=== PATIENT | female | born 1945 | race Caucasian/White ===

== ENCOUNTER 2019-01-28 11:30 | Inpatient (IN) ==
[2019-01-28] MEDS ORDERED: Acetaminophen 325 MG TABLET PO PRN (21:41)
[2019-01-28] MEDS ORDERED: Lactulose Oral Soln 20 GM/30 ML UDC PO PRN (22:53)
[2019-01-28] MEDS: traZODone 50 MG TABLET PO PRN (23:59)
[2019-01-29] MEDS: levETIRAcetam 250 MG TABLET PO SCH ×2 (05:32→17:36)
[2019-01-29 06:05] LABS: Basophils % 0.3 %; Eosinophils # 0.2 K/mcL (0.0-0.6); Eosinophils % 3.1 %; Hematocrit 35.1 % (35.3-44.9); Hemoglobin 11.8 g/dL (11.5-15.4); Immature Granulocytes % 0.9 % (0-4); Lymphocytes # 1.1 K/mcL (0.6-4.6); Lymphocytes % 15.8 %; Mean Corpuscular HGB Conc 33.6 g/dL (31.6-35.5); Mean Corpuscular Hemoglobin 27.2 pg (28.0-33.3); Mean Corpuscular Volume 80.9 fL (83.0-100.0); Mean Platelet Volume 10.1 fL (9.4-12.4); Monocytes # 0.5 K/mcL (0.0-1.3); Monocytes % 7.5 %; Neutrophils # 4.9 K/mcL (1.6-8.9); Platelet Count 158 K/mcL (140-400); Red Blood Count 4.34 M/mcL (3.82-4.97); Red Cell Distribution Width 14.6 % (11.5-14.5); Segmented Neutrophils % 72.4 %; White Blood Count 6.8 K/mcL (4.3-11.1)
[2019-01-29 06:09] LABS: Activated Partial Thrombo Time 40.1 Seconds (26.0-36.0)
[2019-01-29 06:18] LABS: Calcium 9.3 mg/dL (8.6-10.3); Potassium 3.7 mEq/L (3.5-5.1)
[2019-01-29 06:21] LABS: INR 3.3; Prothrombin Time 37.3 Seconds (9.4-12.1)
[2019-01-29] MEDS: Ranolazine 500 MG TAB.ER.12H PO SCH ×2 (08:54→21:19)
[2019-01-29] MEDS: Isosorbide MONOnitrate (24 HR) 30 MG TAB.ER.24H PO SCH (08:54)
[2019-01-29] MEDS: *HR* Amiodarone 200 MG TABLET PO SCH (08:56)
[2019-01-29] MEDS: Spironolactone 25 MG TABLET PO SCH (08:56)
[2019-01-29] MEDS: Anastrozole 1 MG TABLET PO SCH (08:56)
[2019-01-29] MEDS: Diltiazem CD (24hr) 120 MG CAPSULE PO SCH (08:57)
[2019-01-29] MEDS: Furosemide 20 MG TABLET PO SCH ×2 (08:58→17:36)
[2019-01-29] MEDS: Cholecalciferol (D-3) 1,000 UNIT (25MCG) TABLET PO SCH (08:58)
[2019-01-29] MEDS: Insulin LISPRO 300 UNITS/3 ML VIAL SQ SCH ×3 (09:02→16:16)
--- NOTE | 2019-01-29 12:34 | Internal Med History&Physical ---
Date of Encounter: 01/29/19 Time of Encounter: 12:34 Assessment and Plan (1) Acute encephalopathy Current visit: No Status: Acute pt is ready for rehab and needs PT OT with supervision eval pending Internal Medicine - H&P: HPI Chief complaint: Rehab deconditioning Admitted From: Intrahospital Transfer History of present illness: Ms. Rashid is a 73 year old female who was transfer from [facility] for rehab, she had extended admission there for acute encephalopathy with mental status change. She had resp failure there req intubation. She was evaluated . There was concern for seizure and she is on keppra. She has chronic anticoaglation. She has multiple medical problem hx including polypharmacy, renal dz, hx portal vein thrombosis, iron def anemia, a fib, copd, hx cva, hx gerd and pvd, hx tad. she is transfer here for pt with supervision. 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 breast cancer. stage III renal failure. TAD. sick sinus surgery Psychiatric history: depression, other - Past Surgical History Surgical History: breast surgery Additional surgical history: portal vein thrombosis,tummy tuck. back surgery. lap band sx. right breast lumpectomy. lymph node removal. 2 cardiac stents - Social History Smoking Status: Never smoker Smokeless Tobacco Status: No Alcohol use: rarely Drug use: none - Family History Father Adopted: No Family Member Ethnicity: Non- Living Status: Hx Family Cardiac Disorders: Yes Hx Family Respiratory Disorders: No Hx Family Cancer: No Hx Family GI Disorders: No Hx Family Endocrine Disorder: Yes Hx Family Neuromuscular Disorders: No Hx Family Neurologic Disorders: Yes Hx Family HEENT Disorders: No Hx Family Autoimmune Disorders: Yes Mother Family Member Ethnicity: Non- Living Status: Hx Family Cardiac Disorders: Yes Hx Family Respiratory Disorders: No Hx Family Cancer: Yes Hx Family GI Disorders: No Hx Family Endocrine Disorder: Yes Hx Family Neuromuscular Disorders: No Hx Family Neurologic Disorders: No Hx Family HEENT Disorders: No Hx Family Autoimmune Disorders: Yes (RA) Sister Adopted: No Living Status: Still Living Hx Family Cardiac Disorders: Yes Hx Family Respiratory Disorders: No Hx Family Cancer: No Hx Family GI Disorders: No Hx Family Endocrine Disorder: Yes Hx Family Neuromuscular Disorders: No Hx Family Neurologic Disorders: Yes Hx Family HEENT Disorders: No Hx Family Autoimmune Disorders: No Brother Adopted: No Living Status: Still Living Hx Family Cardiac Disorders: Yes Hx Family Respiratory Disorders: No Hx Family Cancer: No Hx Family GI Disorders: No Hx Family Endocrine Disorder: No Hx Family Neuromuscular Disorders: No Hx Family Neurologic Disorders: No Hx Family HEENT Disorders: No Hx Family Autoimmune Disorders: No Internal Medicine - H&P: Meds Escitalopram [Lexapro] 20 mg PO DAILY 02/14/15 [History] Rosuvastatin [Crestor] 40 mg PO DAILY 02/14/15 [History] traZODone [TraZODone] 50 mg PO HS PRN 12/18/16 [History] Ranolazine [Ranexa] 1,000 mg PO BID 10/04/17 [History] Anastrozole [Arimidex] 1 mg PO DAILY 02/12/18 [History] Isosorbide MONOnitrate (24 HR) [Imdur] 30 mg PO DAILY 02/12/18 [History] Pantoprazole Sodium [Protonix] 40 mg PO DAILY 02/12/18 [History] Spironolactone [Aldactone] 25 mg PO DAILY 10/12/18 [History] Warfarin [Coumadin] 2 mg PO SUMOWETHFR 10/12/18 [History] Amiodarone HCl 200 mg PO DAILY 10/13/18 [History] Insulin Glargine,Hum.rec.anlog [Lantus Solostar] 40 unit SQ HS 11/14/18 [History] Insulin LISPRO [Humalog Kwikpen U-100] 8 unit SQ TIDWM 11/14/18 [History] Lactulose 10 gm PO Q72H PRN 11/14/18 [History] Semaglutide [Ozempic] 0.25 mg SQ FR 01/07/19 [History] Clopidogrel [Plavix] 75 mg PO QAM 01/09/19 [History] Diltiazem HCl [Tiazac] 120 mg PO DAILY 01/09/19 [History] Potassium Chloride [Klor-Con 10] 20 meq PO BID 01/09/19 [History] Warfarin [Coumadin] 1 mg PO TUSA 01/15/19 [History] levETIRAcetam [Keppra] 500 mg PO Q12HR #120 tablet 01/17/19 [Rx] Furosemide [Lasix] 20 mg PO BID 01/22/19 [History] metOLazone [Zaroxolyn] 2.5 mg PO 2XW PRN 01/22/19 [History] Cholecalciferol (Vitamin D3) [Vitamin D3] 1,000 unit PO DAILY 01/28/19 [History] Allergy/AdvReac Type Severity Reaction Status Date / Time phenylbutazone Allergy Rash Verified 02/12/18 14:15 [From Butazolidin] amitriptyline [From Elavil] AdvReac Headache Verified 02/12/18 14:15 codeine AdvReac Headache Verified 02/12/18 14:15 desipramine AdvReac Headache Verified 02/12/18 14:15 lisinopril AdvReac Cough Verified 02/12/18 14:15 meperidine [From Demerol] AdvReac Headache Verified 02/12/18 14:15 nalbuphine AdvReac Headache Verified 02/12/18 14:15 Nortriptyline AdvReac Headache Verified 02/12/18 14:15 tiagabine AdvReac Headache Verified 02/12/18 14:15 All Systems PM: A 10-system review of systems was performed and is negative for pertinent findings except as documented above in the HPI. - Constitutional Vitals: Temp Pulse Resp BP Pulse Ox 98.1 F 60 16 127/68 100 01/29/19 11:00 01/29/19 11:00 01/29/19 11:00 01/29/19 11:00 01/29/19 11:00 Internal Med - H&P Results - Labs CBC & Chem 7: 01/29/19 05:30 01/30/19 04:12 Labs: Short CBC 01/29/19 Range/Units 05:30 WBC 6.8 (4.3-11.1) K/mcL Hgb 11.8 (11.5-15.4) g/dL Hct 35.1 L (35.3-44.9) % Plt Count 158 (140-400) K/mcL Neutrophils # 4.9 (1.6-8.9) K/mcL BMP 01/29/19 05:30 Sodium 135 L Potassium 3.7 Chloride 100 Carbon Dioxide 27 BUN 39 H Creatinine 1.64 H Glucose 184 H Calcium 9.3
[2019-01-29] MEDS ORDERED: Warfarin perPT PO PRN (18:00)
[2019-01-29] MEDS: Insulin DETEMIR 100 UNIT/ML X5UNITS SQ SCH (21:19)
[2019-01-30 05:21] LABS: INR 2.3; Prothrombin Time 26.4 Seconds (9.4-12.1)
[2019-01-30] MEDS: levETIRAcetam 250 MG TABLET PO SCH ×2 (05:44→17:12)
[2019-01-30] MEDS: Insulin LISPRO 300 UNITS/3 ML VIAL SQ SCH ×3 (08:19→17:12)
[2019-01-30] MEDS: Diltiazem CD (24hr) 120 MG CAPSULE PO SCH (08:21)
[2019-01-30] MEDS: Furosemide 20 MG TABLET PO SCH ×2 (08:21→17:12)
[2019-01-30] MEDS: Anastrozole 1 MG TABLET PO SCH (08:21)
[2019-01-30] MEDS: Spironolactone 25 MG TABLET PO SCH (08:22)
[2019-01-30] MEDS: Isosorbide MONOnitrate (24 HR) 30 MG TAB.ER.24H PO SCH (08:22)
[2019-01-30] MEDS: *HR* Amiodarone 200 MG TABLET PO SCH (08:22)
[2019-01-30] MEDS: Cholecalciferol (D-3) 1,000 UNIT (25MCG) TABLET PO SCH (08:22)
[2019-01-30] MEDS: Ranolazine 500 MG TAB.ER.12H PO SCH ×2 (08:27→20:27)
--- NOTE | 2019-01-30 14:50 | Internal Med Progress Note ---
Date of Encounter: 01/30/19 Time of Encounter: 13:20 - Assessment and plan (1) Acute encephalopathy Current Visit: No Status: Acute - Subjective Interval history: ss Assessment and Plan (1) Acute encephalopathy Current visit: No Status: Acute pt is ready for rehab and needs PT OT with supervision continue current POC Internal hx Ms. Rashid is a 73 year old female who was transfer from [facility] for rehab, she had extended admission there for acute encephalopathy with mental status change. She had resp failure there req intubation. She was evaluated . There was concern for seizure and she is on keppra. She has chronic anticoaglation. She has multiple medical problem hx including polypharmacy, renal dz, hx portal vein thrombosis, iron def anemia, a fib, copd, hx cva, hx gerd and pvd, hx tad. she is transfer here for pt with supervision. currently stable EXAM Gen fatigued and sleepy HEENT dry mucosa neck no bruit heart distant irreg abd soft full nt bs neuro no acute changes - Constitutional Vitals: Temp Pulse Resp BP Pulse Ox 97.9 F 60 16 134/71 100 01/30/19 06:00 01/30/19 06:00 01/30/19 06:00 01/30/19 06:00 01/30/19 06:00 Internal Medicine: Result - Labs CBC & Chem 7: 01/29/19 05:30 01/30/19 04:12 Labs: BMP 01/30/19 04:12 Sodium 138 Potassium 4.0 Chloride 104 Carbon Dioxide 27 BUN 42 H Creatinine 1.76 H Glucose 187 H Calcium 9.0 - ABG Interpretation ABG results: PT/INR, D-dimer PT 26.4 Seconds (9.4-12.1) H 01/30/19 04:12 Consult Discharge Plan - Plan Referrals: NONE,PCP [Primary Care Provider] -
[2019-01-30] MEDS ORDERED: *HR* Warfarin 2 MG TABLET PO ONE (18:00)
[2019-01-30] MEDS: Insulin DETEMIR 100 UNIT/ML X5UNITS SQ SCH (20:27)
[2019-01-30] MEDS: traZODone 50 MG TABLET PO PRN (22:49)
[2019-01-31] MEDS: levETIRAcetam 250 MG TABLET PO SCH ×2 (06:02→17:08)
[2019-01-31 06:19] LABS: INR 1.8; Prothrombin Time 20.9 Seconds (9.4-12.1)
[2019-01-31 06:24] LABS: Calcium 9.2 mg/dL (8.6-10.3); Potassium 4.4 mEq/L (3.5-5.1)
[2019-01-31] MEDS: Insulin LISPRO 300 UNITS/3 ML VIAL SQ SCH ×3 (07:41→17:09)
[2019-01-31] MEDS: Cholecalciferol (D-3) 1,000 UNIT (25MCG) TABLET PO SCH (08:33)
[2019-01-31] MEDS: Spironolactone 25 MG TABLET PO SCH (08:33)
[2019-01-31] MEDS: Anastrozole 1 MG TABLET PO SCH (08:34)
[2019-01-31] MEDS: Isosorbide MONOnitrate (24 HR) 30 MG TAB.ER.24H PO SCH (08:34)
[2019-01-31] MEDS: Diltiazem CD (24hr) 120 MG CAPSULE PO SCH (08:34)
[2019-01-31] MEDS: Furosemide 20 MG TABLET PO SCH ×2 (08:34→17:09)
[2019-01-31] MEDS: *HR* Amiodarone 200 MG TABLET PO SCH (08:34)
[2019-01-31] MEDS: Ranolazine 500 MG TAB.ER.12H PO SCH ×2 (08:36→21:54)
--- NOTE | 2019-01-31 11:53 | Internal Med Progress Note ---
Date of Encounter: 01/31/19 Time of Encounter: 11:50 - Assessment and plan (1) General weakness Current Visit: Yes Status: Acute Assessment and plan: Continue PT and OT. Will follow progress. (2) Diabetes Current Visit: Yes Status: Chronic Assessment and plan: Controlled with insulin. Monitor fingerstick blood sugar. Will adjust medicines as necessary. Qualifiers: Diabetes mellitus type: type 2 Diabetes mellitus nursing home insulin use: with nursing home use Diabetes mellitus complication status: with neurologic complications Diabetes mellitus complication detail: with polyneuropathy Qualified Code(s): E11.42 - Type 2 diabetes mellitus with diabetic polyneuropathy; Z79.4 - intermission coordinator (current) use of insulin (3) Atrial fibrillation Current Visit: Yes Status: Chronic Assessment and plan: Rate and rhythm stable. Continue Coumadin. Monitor INR. Qualifiers: Atrial fibrillation type: chronic Qualified Code(s): I48.2 - Chronic atrial fibrillation (4) CAD (coronary artery disease) Current Visit: Yes Status: Chronic Assessment and plan: Stable. Denies chest pain. Continue current medication. Qualifiers: Coronary Disease-Associated Artery/Lesion type: [place] artery [place] vs. transplanted heart: [place] heart Associated angina: with stable angina Qualified Code(s): I25.118 - Atherosclerotic heart disease of [place] coronary artery with other forms of angina pectoris - Time Spent With Patient less than 15 minutes - Subjective Interval history: Lying in bed, participating well with therapy. Reports urinary urgency, states she has had this for many years. Incontinent of urine. Last bowel movement 4 days ago. Received lactulose last night. Discussed starting Miralax. Denies fever, chills, nausea vomiting or diarrhea, shortness breath or chest pain. - Constitutional Vitals: Temp Pulse Resp BP Pulse Ox 97.9 F 63 16 121/71 97 01/31/19 07:42 01/31/19 07:42 01/31/19 07:42 01/31/19 07:42 01/31/19 07:42 General appearance: Present: A&O X 3, pleasant, no acute distress, answers questions appropriately - Head Head exam: Present: atraumatic, normocephalic - Eye Eye exam: Present: PERRL, conjuntiva pink, sclera anicteric Pupils: Present: PERRL - Neck Neck exam general surgery: Present: supple, trachea midline. Absent: lymphadenopathy - Respiratory Respiratory exam: Present: CTAB. Absent: accessory muscle use, rales, rhonchi, wheezes - Cardiovascular Cardiovascular exam: Present: irregular rhythm, +S1, +S2. Absent: diastolic murmur, gallop, rubs, systolic murmur - GI/Abdominal GI/Abdominal exam: Present: normal bowel sounds, soft, no peritoneal signs. Absent: distended, tenderness - Extremities Exam Extremities exam: Present: warm, radial pulses palpable and symmetrical. Absent: calf tenderness, cyanotic, pedal edema - Neurological Exam Neurological exam: Present: CN II-XII intact, oriented X3, no focal deficits. Absent: pronater drift, facial droop, speech deficit - Skin Skin exam: Present: dry, intact Additional comments: Scattered ecchymosis Internal Medicine: Result - Labs CBC & Chem 7: 01/29/19 05:30 01/31/19 05:50 Labs: BMP 01/31/19 05:50 Sodium 137 Potassium 4.4 Chloride 105 Carbon Dioxide 28 BUN 40 H Creatinine 1.74 H Glucose 145 H Calcium 9.2 - ABG Interpretation ABG results: PT/INR, D-dimer PT 20.9 Seconds (9.4-12.1) H 01/31/19 05:50 Consult Discharge Plan - Plan Referrals: NONE,PCP [Primary Care Provider] -
[2019-01-31] MEDS ORDERED: *HR* Warfarin 2 MG TABLET PO ONE (18:00)
[2019-01-31] MEDS: traZODone 50 MG TABLET PO PRN (21:54)
[2019-01-31] MEDS: Insulin DETEMIR 100 UNIT/ML X5UNITS SQ SCH (21:55)
[2019-02-01] MEDS: levETIRAcetam 250 MG TABLET PO SCH ×2 (04:38→16:35)
[2019-02-01 06:16] LABS: Calcium 9.1 mg/dL (8.6-10.3); Potassium 4.4 mEq/L (3.5-5.1)
[2019-02-01 07:09] LABS: INR 2.7; Prothrombin Time 30.2 Seconds (9.4-12.1)
[2019-02-01] MEDS: Insulin LISPRO 300 UNITS/3 ML VIAL SQ SCH ×3 (07:52→16:35)
[2019-02-01] MEDS: Isosorbide MONOnitrate (24 HR) 30 MG TAB.ER.24H PO SCH (08:33)
[2019-02-01] MEDS: Anastrozole 1 MG TABLET PO SCH (08:33)
[2019-02-01] MEDS: *HR* Amiodarone 200 MG TABLET PO SCH (08:33)
[2019-02-01] MEDS: Diltiazem CD (24hr) 120 MG CAPSULE PO SCH (08:33)
[2019-02-01] MEDS: Cholecalciferol (D-3) 1,000 UNIT (25MCG) TABLET PO SCH (08:33)
[2019-02-01] MEDS: Furosemide 20 MG TABLET PO SCH ×2 (08:34→16:35)
[2019-02-01] MEDS: Spironolactone 25 MG TABLET PO SCH (08:34)
[2019-02-01] MEDS: Ranolazine 500 MG TAB.ER.12H PO SCH ×2 (10:00→21:28)
--- NOTE | 2019-02-01 11:43 | Internal Med Progress Note ---
Date of Encounter: 02/01/19 Time of Encounter: 11:39 - Assessment and plan (1) General weakness Current Visit: Yes Status: Acute Assessment and plan: Continue PT and OT. Will follow progress. (2) Diabetes Current Visit: Yes Status: Chronic Assessment and plan: Controlled with insulin. Monitor fingerstick blood sugar. Will adjust medicines as necessary. Qualifiers: Diabetes mellitus type: type 2 Diabetes mellitus care home insulin use: with care home use Diabetes mellitus complication status: with neurologic complications Diabetes mellitus complication detail: with polyneuropathy Qualified Code(s): E11.42 - Type 2 diabetes mellitus with diabetic polyneuropathy; Z79.4 - terminal makeup operator (current) use of insulin (3) Atrial fibrillation Current Visit: Yes Status: Chronic Assessment and plan: Rate and rhythm stable. Continue Coumadin. Monitor INR. Qualifiers: Atrial fibrillation type: chronic Qualified Code(s): I48.2 - Chronic atrial fibrillation (4) CAD (coronary artery disease) Current Visit: Yes Status: Chronic Assessment and plan: Stable. Denies chest pain. Continue current medication. Qualifiers: Coronary Disease-Associated Artery/Lesion type: [place] artery [place] vs. transplanted heart: [place] heart Associated angina: with stable angina Qualified Code(s): I25.118 - Atherosclerotic heart disease of [place] coronary artery with other forms of angina pectoris - Time Spent With Patient less than 15 minutes - Subjective Interval history: Ambulating with therapy in hallway with Walker with contact guard assist. Denies fever, chills, nausea vomiting or diarrhea. Denies shortness of breath or chest pain. Nursing staff states that urinalysis cloudy. Will obtain urinalysis. Last bowel movement 4 days ago, states it is normal for her to go a week without bowel movement.. Miralax ordered. - Constitutional Vitals: Temp Pulse Resp BP Pulse Ox 97.8 F 60 15 137/76 97 02/01/19 07:36 02/01/19 07:36 02/01/19 07:36 02/01/19 07:36 02/01/19 07:36 General appearance: Present: A&O X 3, pleasant, no acute distress, answers questions appropriately - Head Head exam: Present: atraumatic, normocephalic - Eye Eye exam: Present: PERRL, conjuntiva pink, sclera anicteric Pupils: Present: PERRL - Neck Neck exam general surgery: Present: supple, trachea midline. Absent: lymphadenopathy - Respiratory Respiratory exam: Present: CTAB. Absent: accessory muscle use, rales, rhonchi, wheezes - Cardiovascular Cardiovascular exam: Present: irregular rhythm, +S1, +S2. Absent: diastolic murmur, gallop, rubs, systolic murmur - GI/Abdominal GI/Abdominal exam: Present: normal bowel sounds, soft, no peritoneal signs. Absent: distended, tenderness - Extremities Exam Extremities exam: Present: warm, radial pulses palpable and symmetrical. Absent: calf tenderness, cyanotic, pedal edema - Neurological Exam Neurological exam: Present: CN II-XII intact, oriented X3, no focal deficits. Absent: pronater drift, facial droop, speech deficit - Skin Skin exam: Present: dry, intact Internal Medicine: Result - Labs CBC & Chem 7: 01/29/19 05:30 02/01/19 05:45 Labs: BMP 02/01/19 05:45 Sodium 136 Potassium 4.4 Chloride 105 Carbon Dioxide 27 BUN 36 H Creatinine 1.67 H Glucose 122 H Calcium 9.1 - ABG Interpretation ABG results: PT/INR, D-dimer PT 30.2 Seconds (9.4-12.1) H 02/01/19 05:45 Consult Discharge Plan - Plan Referrals: NONE,PCP [Non-Partnered Physician] -
[2019-02-01 17:18] LABS: Bilirubin,Urine Negative (Negative); Blood,Urine Moderate (Negative); Color,Urine Yellow (Yellow); Glucose,Urine (UA) 100 mg/dL (Normal); Ketones,Urine Negative (Negative); Leukocyte Esterase,Urine Large (Negative); Nitrite,Urine Negative (Negative); Protein,Urine 100 mg/dL (Neg-Trace); Specific Gravity,Urine >= 1.030 (1.010-1.025); Urobilinogen,Urine Normal (Normal)
[2019-02-01 17:19] LABS: Clarity,Urine Cloudy (Clear)
[2019-02-01 17:20] LABS: RBC,Urine 50-100 per hpf (0-3); WBC,Urine TNTC per hpf (0-3)
[2019-02-01 17:21] LABS: Bacteria,Urine Moderate per hpf (None-Few); Squamous Epithelial Cell,Urine Few per lpf (None-Few)
[2019-02-01] MEDS ORDERED: *HR* Warfarin 1 MG TABLET PO ONE (18:00)
[2019-02-01] MEDS: Insulin DETEMIR 100 UNIT/ML X5UNITS SQ SCH (21:28)
[2019-02-01] MEDS: traZODone 50 MG TABLET PO PRN (21:28)
[2019-02-02] MEDS: levETIRAcetam 250 MG TABLET PO SCH ×2 (04:57→18:02)
[2019-02-02 08:34] LABS: Prothrombin Time 33.6 Seconds (9.4-12.1)
[2019-02-02] MEDS: Ranolazine 500 MG TAB.ER.12H PO SCH ×2 (08:59→21:04)
[2019-02-02] MEDS: *HR* Amiodarone 200 MG TABLET PO SCH (09:00)
[2019-02-02] MEDS: Furosemide 20 MG TABLET PO SCH ×2 (09:00→18:02)
[2019-02-02] MEDS: Insulin LISPRO 300 UNITS/3 ML VIAL SQ SCH ×3 (09:00→18:00)
[2019-02-02] MEDS: Spironolactone 25 MG TABLET PO SCH (09:00)
[2019-02-02] MEDS: Isosorbide MONOnitrate (24 HR) 30 MG TAB.ER.24H PO SCH (09:00)
[2019-02-02] MEDS: Anastrozole 1 MG TABLET PO SCH (09:00)
[2019-02-02] MEDS: Cholecalciferol (D-3) 1,000 UNIT (25MCG) TABLET PO SCH (09:00)
[2019-02-02] MEDS: Diltiazem CD (24hr) 120 MG CAPSULE PO SCH (09:00)
--- NOTE | 2019-02-02 12:38 | Internal Med Progress Note ---
Date of Encounter: 02/02/19 Time of Encounter: 12:36 - Assessment and plan (1) COPD (chronic obstructive pulmonary disease) Current Visit: No Status: Chronic Assessment and plan: No acute issues at this time. Lungs are clear throughout. Denies dyspnea. No productive cough. We will continue with physical therapy and current medications. Qualifiers: COPD type: chronic bronchitis Chronic bronchitis type: simple Qualified Code(s): J41.0 - Simple chronic bronchitis (2) Diabetes Current Visit: No Status: Chronic Assessment and plan: No acute issues. Patient's glucose has been better controlled over the past few days with most readings less than 200. We will continue with current medications Qualifiers: Diabetes mellitus type: type 2 Diabetes mellitus terminal make up operator insulin use: with nursing home use Diabetes mellitus complication status: with hyperglycemia Qualified Code(s): E11.65 - Type 2 diabetes mellitus with hyperglycemia (3) Atrial fibrillation Current Visit: Yes Status: Chronic Assessment and plan: Patient's heart rate remains irregular with a controlled ventricular rate less than 100. We will continue on current medications and anticoagulation Qualifiers: Atrial fibrillation type: chronic Qualified Code(s): I48.2 - Chronic atrial fibrillation (4) CAD (coronary artery disease) Current Visit: Yes Status: Chronic Assessment and plan: No current issues. Patient denies any chest discomforts or palpitations. Denies any dyspnea on exertion. We will continue with current therapy and medications Qualifiers: Coronary Disease-Associated Artery/Lesion type: [place] artery [place] vs. transplanted heart: [place] heart Associated angina: with stable angina Qualified Code(s): I25.118 - Atherosclerotic heart disease of [place] coronary artery with other forms of angina pectoris (5) CHF (congestive heart failure) Current Visit: Yes Status: Acute Assessment and plan: No acute issues at this time. Patient's lungs are clear throughout and she denies any dyspnea on exertion. This may oral and therapy. No peripheral edema noted. We will continue on current medications Qualifiers: Heart failure type: unspecified Heart failure chronicity: unspecified Qualified Code(s): I50.9 - Heart failure, unspecified - Time Spent With Patient less than 15 minutes - Subjective Interval history: Patient appears relaxed but states she has had a slight frontal headache, which she states has been a intermittent chronic issue. States a history of sinusitis. Patient also states that she has taken Tylenol which has been effective. Denies any dyspnea or chest discomforts. Denies any palpitations. States that therapy has been progressing well - Constitutional Vitals: Temp Pulse Resp BP Pulse Ox 97.8 F 60 17 117/62 98 02/02/19 06:48 02/02/19 06:48 02/02/19 06:48 02/02/19 06:48 02/02/19 06:48 General appearance: Present: A&O X 3, pleasant, no acute distress, answers questions appropriately - Head Head exam: Present: atraumatic, normocephalic - Eye Eye exam: Present: PERRL, conjuntiva pink, sclera anicteric Pupils: Present: PERRL - Neck Neck exam general surgery: Present: supple, trachea midline. Absent: lymphadenopathy - Respiratory Respiratory exam: Present: decreased breath sounds, CTAB. Absent: accessory muscle use, rales, rhonchi, wheezes - Cardiovascular Cardiovascular exam: Present: RRR, +S1, +S2. Absent: diastolic murmur, gallop, rubs, systolic murmur - GI/Abdominal GI/Abdominal exam: Present: normal bowel sounds, soft, no peritoneal signs. Absent: distended, tenderness - Extremities Exam Extremities exam: Present: warm, radial pulses palpable and symmetrical. Absent: calf tenderness, cyanotic, pedal edema - Neurological Exam Neurological exam: Present: CN II-XII intact, oriented X3, no focal deficits. Absent: pronater drift, facial droop, speech deficit - Skin Skin exam: Present: dry, intact Internal Medicine: Result - Labs CBC & Chem 7: 01/29/19 05:30 02/01/19 05:45 Labs: Urine 02/01/19 Range/Units 16:45 Urine Color Yellow (Yellow) Urine Clarity Cloudy A (Clear) Urine pH 6.0 (5.0-8.0) pH Units Ur Specific [place] >= 1.030 H (1.010-1.025) Urine Protein 100 H (Neg-Trace) mg/dL Urine Glucose (UA) 100 H (Normal) mg/dL - ABG Interpretation ABG results: PT/INR, D-dimer PT 33.6 Seconds (9.4-12.1) H 02/02/19 07:51 Consult Discharge Plan - Plan Referrals: NONE,PCP [Non-Partnered Physician] -
[2019-02-02] MEDS ORDERED: *HR* Warfarin 1 MG TABLET PO ONE ×2 (18:00)
[2019-02-02] MEDS: Insulin DETEMIR 100 UNIT/ML X5UNITS SQ SCH (21:05)
[2019-02-02] MEDS: traZODone 50 MG TABLET PO PRN (21:05)
[2019-02-03] MEDS: levETIRAcetam 250 MG TABLET PO SCH ×2 (05:41→17:25)
[2019-02-03 07:09] LABS: INR 2.7; Prothrombin Time 30.2 Seconds (9.4-12.1)
[2019-02-03] MEDS: Insulin LISPRO 300 UNITS/3 ML VIAL SQ SCH ×3 (08:22→16:02)
[2019-02-03] MEDS: Spironolactone 25 MG TABLET PO SCH (08:23)
[2019-02-03] MEDS: Diltiazem CD (24hr) 120 MG CAPSULE PO SCH (08:23)
[2019-02-03] MEDS: Cholecalciferol (D-3) 1,000 UNIT (25MCG) TABLET PO SCH (08:23)
[2019-02-03] MEDS: *HR* Amiodarone 200 MG TABLET PO SCH (08:23)
[2019-02-03] MEDS: Furosemide 20 MG TABLET PO SCH ×2 (08:23→17:25)
[2019-02-03] MEDS: Anastrozole 1 MG TABLET PO SCH (08:23)
[2019-02-03] MEDS: Isosorbide MONOnitrate (24 HR) 30 MG TAB.ER.24H PO SCH (08:24)
[2019-02-03] MEDS: Ranolazine 500 MG TAB.ER.12H PO SCH ×2 (08:24→21:19)
--- NOTE | 2019-02-03 10:59 | Internal Med Progress Note ---
Date of Encounter: 02/03/19 Time of Encounter: 10:57 - Assessment and plan (1) COPD (chronic obstructive pulmonary disease) Current Visit: No Status: Chronic Assessment and plan: No acute issues at this time. Lungs are clear throughout. Denies dyspnea. No productive cough. We will continue with physical therapy and current medications. Qualifiers: COPD type: chronic bronchitis Chronic bronchitis type: simple Qualified Code(s): J41.0 - Simple chronic bronchitis (2) Diabetes Current Visit: No Status: Chronic Assessment and plan: No acute issues. Patient's glucose has been better controlled over the past few days, but continues to have readings greater than 200. We will continue with current medications and evaluate needs further titration Qualifiers: Diabetes mellitus type: type 2 Diabetes mellitus nursing home insulin use: with nursing home use Diabetes mellitus complication status: with hyperglycemia Qualified Code(s): E11.65 - Type 2 diabetes mellitus with hyperglycemia (3) Atrial fibrillation Current Visit: Yes Status: Chronic Assessment and plan: Patient's heart rate remains irregular with a controlled ventricular rate less than 100. We will continue on current medications and anticoagulation Qualifiers: Atrial fibrillation type: chronic Qualified Code(s): I48.2 - Chronic atrial fibrillation (4) CAD (coronary artery disease) Current Visit: Yes Status: Chronic Assessment and plan: No current issues. Patient denies any chest discomforts or palpitations. Gabriele es any dyspnea on exertion. We will continue with current therapy and medications Qualifiers: Coronary Disease-Associated Artery/Lesion type: [place] artery [place] vs. transplanted heart: [place] heart Associated angina: with stable angina Qualified Code(s): I25.118 - Atherosclerotic heart disease of [place] coronary artery with other forms of angina pectoris (5) CHF (congestive heart failure) Current Visit: Yes Status: Acute Assessment and plan: No acute issues at this time. Patient's lungs are clear throughout and she denies any dyspnea on exertion. No peripheral edema noted. We will continue on current medications Qualifiers: Heart failure type: unspecified Heart failure chronicity: unspecified Qualified Code(s): I50.9 - Heart failure, unspecified - Subjective Interval history: Patient appears relaxed and denies any current discomforts or shortness of breath. States that therapy has been progressing well. - Constitutional Vitals: Temp Pulse Resp BP Pulse Ox 97.8 F 60 16 123/67 92 02/03/19 07:22 02/03/19 07:22 02/03/19 07:22 02/03/19 07:22 02/03/19 07:22 General appearance: Present: A&O X 3, pleasant, no acute distress, answers questions appropriately - Head Head exam: Present: atraumatic, normocephalic - Eye Eye exam: Present: PERRL, conjuntiva pink, sclera anicteric Pupils: Present: PERRL - Neck Neck exam general surgery: Present: supple, trachea midline. Absent: lymphadenopathy - Respiratory Respiratory exam: Present: decreased breath sounds, CTAB. Absent: accessory muscle use, rales, rhonchi, wheezes - Cardiovascular Cardiovascular exam: Present: irregular rhythm, RRR, +S1, +S2. Absent: diastolic murmur, gallop, rubs, systolic murmur Additional comments: Heart rate remains irregular with ventricular rate less than 100 - GI/Abdominal GI/Abdominal exam: Present: normal bowel sounds, soft, no peritoneal signs. Absent: distended, tenderness - Extremities Exam Extremities exam: Present: warm, radial pulses palpable and symmetrical. Absent: calf tenderness, cyanotic, pedal edema - Neurological Exam Neurological exam: Present: CN II-XII intact, oriented X3, no focal deficits. Absent: pronater drift, facial droop, speech deficit - Skin Skin exam: Present: dry, intact Internal Medicine: Result - Labs CBC & Chem 7: 01/29/19 05:30 02/01/19 05:45 - ABG Interpretation ABG results: PT/INR, D-dimer PT 30.2 Seconds (9.4-12.1) H 02/03/19 06:29 Consult Discharge Plan - Plan Referrals: NONE,PCP [Non-Partnered Physician] -
[2019-02-03] MEDS ORDERED: *HR* Warfarin 1 MG TABLET PO ONE (18:00)
[2019-02-03] MEDS: Sulfamethoxazole/Trimeth DS 1 EACH TABLET PO SCH (21:20)
[2019-02-03] MEDS: Insulin DETEMIR 100 UNIT/ML X5UNITS SQ SCH (21:21)
[2019-02-04] MEDS: levETIRAcetam 250 MG TABLET PO SCH (05:13)
[2019-02-04 07:12] VITALS: BP 136/79
[2019-02-04] MEDS: Insulin LISPRO 300 UNITS/3 ML VIAL SQ SCH ×2 (07:36→11:59)
[2019-02-04] MEDS: Diltiazem CD (24hr) 120 MG CAPSULE PO SCH (07:50)
[2019-02-04] MEDS: Spironolactone 25 MG TABLET PO SCH (07:50)
[2019-02-04] MEDS: Sulfamethoxazole/Trimeth DS 1 EACH TABLET PO SCH (07:50)
[2019-02-04] MEDS: Anastrozole 1 MG TABLET PO SCH (07:50)
[2019-02-04] MEDS: Ranolazine 500 MG TAB.ER.12H PO SCH (07:50)
[2019-02-04] MEDS: Isosorbide MONOnitrate (24 HR) 30 MG TAB.ER.24H PO SCH (07:50)
[2019-02-04] MEDS: Cholecalciferol (D-3) 1,000 UNIT (25MCG) TABLET PO SCH (07:50)
[2019-02-04] MEDS: Furosemide 20 MG TABLET PO SCH (07:50)
[2019-02-04] MEDS: *HR* Amiodarone 200 MG TABLET PO SCH (07:51)
[2019-02-04 11:00] LABS: INR 2.6; Prothrombin Time 30.1 Seconds (9.4-12.1)
--- NOTE | 2019-02-04 12:16 | Discharge Summary ---
Orders not resulted at time of discharge: Pending orders 02/01/19 16:45 Culture,Urine [RM] Routine Urinalysis Reflex Cult & Micro [URIN] Routine Date of Encounter: 02/04/19 Time of Encounter: 12:05 - Discharge Diagnosis (1) General weakness Priority: Primary Status: Acute Comments: Ambulating household distances with standby assist. Continue outpatient physical therapy. Ambulate With Walker. (2) Diabetes Priority: Secondary Status: Chronic Comments: Controlled with insulin. Continue to monitor fingerstick blood sugar. Follow up with PCP. 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 Continue Coumadin. Follow up with PCP. Qualifiers: Atrial fibrillation type: chronic Qualified Code(s): I48.2 - Chronic atrial fibrillation (4) CAD (coronary artery disease) Priority: Secondary Status: Chronic Comments: Stable. Denies chest pain. Continue current medication. Qualifiers: Coronary Disease-Associated Artery/Lesion type: [place] artery [place] vs. transplanted heart: [place] heart Associated angina: with stable angina Qualified Code(s): I25.118 - Atherosclerotic heart disease of [place] coronary artery with other forms of angina pectoris Hospital course: Ms. Rashid is a 73 year old female discharging to home with after completing rehab goals. Was transferred from [facility] for rehab, she had extended admission there for acute encephalopathy with mental status change. She had resp failure there req intubation. She was evaluated . There was concern for seizure and she is on keppra. She has chronic anticoaglation. She has multiple medical problem hx including polypharmacy, renal dz, hx portal vein thrombosis, iron def anemia, a fib, copd, hx cva, hx gerd and pvd, hx tad. Denies fever, chills, nausea vomiting or diarrhea. Denies shortness of breath or chest pain. Ambulates household distances with Walker. Will continue home therapy. Instructed to follow up with PCP within one week. Instructed to follow up with Coumadin management. Discharge discussed with: patient, family, nurse, social work - Time Spent with Patient Total time spent providing and/or coordinating discharge services: Time spent: Less than 30 minutes - Discharge Medications Prescriptions: No Action Rosuvastatin [Crestor] 40 mg PO DAILY Escitalopram [Lexapro] 20 mg PO DAILY traZODone [TraZODone] 50 mg PO HS PRN PRN Reason: Insomnia Ranolazine [Ranexa] 1,000 mg PO BID Anastrozole [Arimidex] 1 mg PO DAILY Isosorbide MONOnitrate (24 HR) [Imdur] 30 mg PO DAILY Pantoprazole Sodium [Protonix] 40 mg PO DAILY Spironolactone [Aldactone] 25 mg PO DAILY Warfarin [Coumadin] 2 mg PO SUMOWETHFR Amiodarone HCl 200 mg PO DAILY Insulin Glargine,Hum.rec.anlog [Lantus Solostar] 40 unit SQ HS Insulin LISPRO [Humalog Kwikpen U-100] 8 unit SQ TIDWM Lactulose 10 gm PO Q72H PRN PRN Reason: Constipation Semaglutide [Ozempic] 0.25 mg SQ FR Clopidogrel [Plavix] 75 mg PO QAM Diltiazem HCl [Tiazac] 120 mg PO DAILY Potassium Chloride [Klor-Con 10] 20 meq PO BID Warfarin [Coumadin] 1 mg PO TUSA levETIRAcetam [Keppra] 500 mg PO Q12HR #120 tablet Furosemide [Lasix] 20 mg PO BID metOLazone [Zaroxolyn] 2.5 mg PO 2XW PRN PRN Reason: Swelling Cholecalciferol (Vitamin D3) [Vitamin D3] 1,000 unit PO DAILY Home Medications: Escitalopram [Lexapro] 20 mg PO DAILY 02/14/15 [History] Rosuvastatin [Crestor] 40 mg PO DAILY 02/14/15 [History] traZODone [TraZODone] 50 mg PO HS PRN 12/18/16 [History] Ranolazine [Ranexa] 1,000 mg PO BID 10/04/17 [History] Anastrozole [Arimidex] 1 mg PO DAILY 02/12/18 [History] Isosorbide MONOnitrate (24 HR) [Imdur] 30 mg PO DAILY 02/12/18 [History] Pantoprazole Sodium [Protonix] 40 mg PO DAILY 02/12/18 [History] Spironolactone [Aldactone] 25 mg PO DAILY 10/12/18 [History] Warfarin [Coumadin] 2 mg PO SUMOWETHFR 10/12/18 [History] Amiodarone HCl 200 mg PO DAILY 10/13/18 [History] Insulin LISPRO [Humalog Kwikpen U-100] 8 unit SQ TIDWM 11/14/18 [History] Lactulose 10 gm PO Q72H PRN 11/14/18 [History] Semaglutide [Ozempic] 0.25 mg SQ FR 01/07/19 [History] Clopidogrel [Plavix] 75 mg PO QAM 01/09/19 [History] Diltiazem HCl [Tiazac] 120 mg PO DAILY 01/09/19 [History] Potassium Chloride [Klor-Con 10] 20 meq PO BID 01/09/19 [History] Warfarin [Coumadin] 1 mg PO TUSA 01/15/19 [History] levETIRAcetam [Keppra] 500 mg PO Q12HR #120 tablet 01/17/19 [Rx] Furosemide [Lasix] 20 mg PO BID 01/22/19 [History] Cholecalciferol (Vitamin D3) [Vitamin D3] 1,000 unit PO DAILY 01/28/19 [History] Acetaminophen [Tylenol] 650 mg PO Q6HR PRN tablet 02/04/19 [Rx] Insulin DETEMIR [Levemir] 20 unit SQ HS [id number] 02/04/19 [Rx] Polyethylene Glycol 3350 [MiraLAX] 17 gm PO DAILY powd.pack 02/04/19 [Rx] Sulfamethoxazole/Trimeth DS [Bactrim Ds] 0.5 each PO BID 7 Days #14 tablet 02/04/19 [Rx] Allergies/Adverse Reactions: Allergy/AdvReac Type Severity Reaction Status Date / Time phenylbutazone Allergy Rash Verified 02/12/18 14:15 [From Butazolidin] amitriptyline [From Elavil] AdvReac Headache Verified 02/12/18 14:15 codeine AdvReac Headache Verified 02/12/18 14:15 desipramine AdvReac Headache Verified 02/12/18 14:15 lisinopril AdvReac Cough Verified 02/12/18 14:15 meperidine [From Demerol] AdvReac Headache Verified 02/12/18 14:15 nalbuphine AdvReac Headache Verified 02/12/18 14:15 Nortriptyline AdvReac Headache Verified 02/12/18 14:15 tiagabine AdvReac Headache Verified 02/12/18 14:15 Date of admission: 01/28/19 19:06 Primary care physician: Jose Gold MD Consults: 01/28/19 21:37 Consult to Occupational Therapy [CONS] Routine Comment: Evaluate, develop and implement POC Reason for Consult: Evaluate and treat Does patient have active BEDREST order?: No Is patient medically & hemodynamically stable?: Yes Patient assessed for mobility or mobilized this visit?: Yes Consult to Physical Therapy [CONS] Routine Comment: Evaluate, develop and implement POC Reason for Consult: Evaluate and treat Does patient have active BEDREST order?: No Is patient medically & hemodynamically stable?: Yes Patient assessed for mobility or mobilized this visit?: Yes Consult to Recreational Therapy [CONS] Routine Comment: Evaluate, develop and implement POC 01/29/19 00:50 Consult to Nutrition [CONS] Routine Comment: Consulting Provider: NUTRITION Reason for Dietary Consult: MST Score Discharging clinician: Alex Catherine Anticipated date of discharge: 02/04/19 - Constitutional Vitals: Temp Pulse Resp BP Pulse Ox 98.5 F 60 16 136/79 99 02/04/19 07:11 02/04/19 07:54 02/04/19 07:11 02/04/19 07:11 02/04/19 07:11 General appearance: Present: cooperative, A&O X 3, pleasant, no acute distress, answers questions appropriately - Head Head exam: Present: atraumatic, normocephalic - Eye Eye exam: Present: PERRL, conjuntiva pink, sclera anicteric Pupils: Present: PERRL - Neck Neck exam general surgery: Present: supple, trachea midline. Absent: lymphadenopathy - Respiratory Respiratory exam: Present: CTAB. Absent: accessory muscle use, rales, rhonchi, wheezes - Cardiovascular Cardiovascular exam: Present: RRR, +S1, +S2. Absent: diastolic murmur, gallop, rubs, systolic murmur - GI/Abdominal GI/Abdominal exam: Present: normal bowel sounds, soft, no peritoneal signs. Absent: distended, tenderness - Extremities Exam Extremities exam: Present: warm, radial pulses palpable and symmetrical. Absent: calf tenderness, cyanotic, pedal edema - Neurological Exam Neurological exam: Present: CN II-XII intact, oriented X3, no focal deficits. Absent: pronater drift, facial droop, speech deficit - Skin Skin exam: Present: dry, intact - Patient Status Disposition: Home, Self-Care Condition: Good Functional capacity at discharge: uses cane/walker Overall status at discharge: patient is progressing back to baseline - Discharge Instructions Follow Up With: NONE,PCP [Non-Partnered Physician] - - Diet and Activity Activity: as per physical therapy Diet: diabetic diet
[2019-02-04] MEDS ORDERED: *HR* Warfarin 1 MG TABLET PO ONE (18:00)
== END 2019-02-04 15:55 | disposition home or self-care (01) | DRG 71 ==
LOC: INPGRE 19:06